=== PATIENT | male | born 1935 | race Caucasian/White ===

== ENCOUNTER 2016-08-01 21:51 | Inpatient (IN) | payer MEDICARE ==
--- NOTE | ~2016-08-01 | DS ---
Discharge Summary [facility] [address] [place]. [address] NAME: SASHA GALO : 33 STATUS : DIS IN PAT#: [id number] AGE: 81 ADM/REG DATE : 08/02/16 MR#: [id number] REPORT SERV DATE: 08/07/16 DICTATED BY: PAVAN YAÑEZ DATE: 08/05/16 REPORT STATUS : Draft TRANSCRIBED BY: MODL DATE: 08/05/16 ADMISSION DATE: 08/02/2016 DISCHARGE DATE: PALLIATIVE CARE DOCTOR: Andre Jerez M.D. FINAL DIAGNOSES: 1. Acute on chronic hypoxic respiratory failure. 2. Aspiration pneumonitis. 3. Pulmonary fibrosis. 4. Atrial fibrillation. 5. Hypertension. 6. Chronic diastolic congestive heart failure. 7. History of pulmonary embolism and deep venous thrombosis. 8. Benign prostatic hypertrophy. 9. Anxiety and panic attacks. 10.Chronic pain. HOSPITAL COURSE: Please refer to the H and P done by Dr. Aragon dated on 08/02/2016 and the interim discharge summary done by Dr. Yusuf dated on 08/05/2016. Since I took care of this patient, the patient has been doing well and is saturating at 93% at 3.5 L of oxygen. His baseline is that he goes up to 6 L when he starts moving around. He said he feels so much better and wants to go back to [facility] to continue his rehab. I was told by the Case Management that the patient will be accepted by [facility] today, so we will be discharging him there with the above diagnosis. MEDICATIONS: Same thing as on the discharge summary done by Dr. Yusuf. FOLLOWUP: The patient will follow up with the [facility] doctor, then follow up with Dr. Potter and Dr. Osorio after discharge from [facility]. This has been explained to the patient and he agreed and understood the plan. ADDENDUM The patient was already approved for [facility] yesterday; however, there was no bed available, so the patient stayed an additional night here, where he and his vital signs remained stable. The patient denied any pain and no increase in shortness of breath. However, he had several questions and I discussed that with him with regard to his diagnosis and treatment, prognosis, hypoxia, and at one point, he was saying that his arthritis in his hands can give him so much pain that he is willing to stop his Eliquis in order to take his NSAIDs. I discussed with him other alternative measures aside from the intake of NSAIDs wherein he can use some topical agents of various kinds, keeping it warm, and he understood this. The patient will now be discharged with the same diagnoses as dictated yesterday and the same medications. He will follow up with [facility] doctor and follow up with his PCP after discharge. TIME SPENT: 35 minutes. Discharge Summary [address] [place]. [address] NAME: SASHA GALO : 33 STATUS : DIS IN PAT#: [id number] AGE: 81 ADM/REG DATE : 08/02/16 MR#: [id number] REPORT SERV DATE: 08/07/16 DICTATED BY: PAVAN YAÑEZ DATE: 08/05/16 REPORT STATUS : Draft TRANSCRIBED BY: NASIM DATE: 08/05/16 GRACIA/NASIM Pavan Yañez M.D. / [id number] / [id number] CC: Timoteo Khan M.D. Robert Warren Goldmann, M.D.
--- NOTE | ~2016-08-01 | DS ---
Discharge Summary [facility] [address] [place]. [address] NAME: SASHA GALO : 33 STATUS : ADM IN [facility]#: [id number] AGE: 81 ADM/REG DATE : 08/02/16 MR#: [id number] REPORT SERV DATE: 08/05/16 DICTATED BY: DATE: REPORT STATUS : Draft TRANSCRIBED BY: MODL DATE: 08/04/16 ADMISSION DATE: 08/02/2016 DISCHARGE DATE: 08/04/2016 [facility] DIRECTOR EDUCATIONAL RADIO: None. DISCHARGE DIAGNOSES: 1. Acute exacerbation of pulmonary fibrosis due to left lower lobe aspiration pneumonitis. 2. Acute on chronic hypoxemic respiratory failure, at baseline 6 L oxygen-dependent, discharged on 6 L to 8 L of oxygen. 3. Chronic atrial fibrillation, rate controlled, on Eliquis. 4. Hypertension, controlled. 5. Benign prostatic hypertrophy. 6. Anxiety and panic attacks. 7. Chronic pain syndrome and narcotic dependence. 8. History of diastolic congestive heart failure, compensated this admission. 9. History of pulmonary embolism and deep venous thrombosis, on chronic Eliquis. 10.History of iron-deficiency. 11.Chronic constipation. IMAGING AND DIAGNOSTICS: Included a portable chest x-ray showing left lower lobe infiltrate and a two-view chest x-ray on 08/03/2016, showing resolution. PERTINENT LABORATORIES: BNP 66. Lactate 2.3. Sputum with 10 to 25 white blood cells and less than 25 epithelial cells. Procalcitonin negative. White blood cell count 9.0, hemoglobin 11.8, platelets normal, INR 1.3. Creatinine 1.1. Liver enzymes normal. Blood gas: PH 7.44, pCO2 40, pO2 41, oxygen saturation 77% on 6 L nasal cannula. Blood cultures x2 negative. Sputum culture pending at the time of dictation. BRIEF HISTORY: For full details, please see the previously dictated history of present illness by Dr. Jeronimo Aragon. This is an 81-year-old white male with known pulmonary fibrosis, dependent on 6 L oxygen nasal cannula, also with history of recent admission at [facility] for acute hypoxemic respiratory failure and aspiration pneumonia. He was discharged from that facility on 07/29/2016, to complete a 10-day course of Flagyl and Levaquin. He was discharged to [facility]. Over the preceding two days in [facility], he was becoming progressively short of breath, with oxygen saturations in the low 80s on 4 to 6 L oxygen by nasal cannula. In the emergency department, arterial blood gas showed pO2 of 41 on 6 L nasal cannula. He had rhonchi particularly in the left lower lobe with possible evidence of a left lower lobe infiltrate on Emergency Department chest x-ray. The patient was admitted to the Hospitalist Service for this. HOSPITAL COURSE: The patient was admitted to [address] [place] [address], placed on IV steroids, nebulized breathing treatments, and IV Rocephin and azithromycin. After 12 hours of admission, he was markedly improved with oxygen saturations in the upper 90s on 6 to 8 L nasal cannula. He Discharge Summary [address] [address] NAME: SASHA GALO : 33 STATUS : ADM IN [facility]#: [id number] AGE: 81 ADM/REG DATE : 08/02/16 MR#: [id number] REPORT SERV DATE: 08/05/16 DICTATED BY: DATE: REPORT STATUS : Draft TRANSCRIBED BY: MODL DATE: 08/04/16 still had some rhonchi in the left lower lobe. He had no leukocytosis and a negative procalcitonin. Sputum culture was obtained, demonstrating 10 to 25 white blood cells with culture results pending at the time of dictation. He continued to make improvement from a pulmonary perspective, and stated that he felt well on the morning of 08/04/2016, and was requesting to go back to [facility] to complete physical rehabilitation prior to going home. He is going to establish care with Dr. Jerez of palliative care at discharge from [facility]. The patient's other chronic medical problems as outlined above were stable and controlled on home medications here. Of note, initial portable chest x-ray in the emergency department was read as possible pulmonary edema, but the patient did not demonstrate clinically any signs of volume overload and had a negative BNP, thus was not felt to have any acute exacerbation of diastolic dysfunction this admission. DISCHARGE DISPOSITION: The patient is being discharged back to [facility] for additional rehab. He should continue to utilize oxygen by nasal cannula 6 to 8 L, titrate to keep his oxygen saturations greater than 88%. He will be treated with an additional five days of antibiotics and an oral steroid taper. Inhaled steroid has been added to his discharge medication regimen. DISCHARGE MEDICATIONS: Included: 1. Eliquis 2.5 mg p.o. twice a day. 2. Vitamin C 500 mg p.o. q.a.m. 3. Celexa 10 mg p.o. twice a day. 4. Cardizem 60 mg p.o. twice a day. 5. Colace 100 mg p.o. twice a day. 6. Cymbalta 60 mg p.o. q.a.m. 7. Iron sulfate 325 mg p.o. q.a.m. 8. Finasteride 5 mg p.o. q.a.m. 9. Folic acid 800 mcg p.o. q.a.m. 10.Gabapentin 500 mg p.o. at bedtime. 11.Melatonin 6 mg p.o. at bedtime. 12.Remeron 45 mg p.o. at bedtime. 13.Multivitamin one tablet p.o. daily. 14.Pantoprazole 40 mg p.o. q.a.c. breakfast. 15.MiraLAX 17 g p.o. at bedtime. 16.Potassium 20 mEq p.o. q.a.m. 17.Flomax 0.4 mg p.o. at bedtime. 18.Acetaminophen 650 mg p.o. every four hours as needed. 19.Dulcolax 10 mg per rectum daily as needed for constipation. 20.Milk of Mag 30 mL p.o. daily as needed for constipation. 21.Nitroglycerin 0.4 mg sublingual as needed for chest pain. 22.Zofran 4 mg p.o. every six hours as needed for nausea. 23.Senokot 17.2 mg p.o. at bedtime p.r.n. Discharge Summary [place] [place] [id number] [facility] [place]. [address] NAME: SASHA GALO : 33 STATUS : ADM IN PAT#: [id number] AGE: 81 ADM/REG DATE : 08/02/16 MR#: [id number] REPORT SERV DATE: 08/05/16 DICTATED BY: DATE: REPORT STATUS : Draft TRANSCRIBED BY: MODL DATE: 08/04/16 24.DuoNeb one neb inhaled four times a day scheduled and q.4 hours p.r.n. 25.Maalox 30 mL p.o. every 4 hours as needed. 26.Percocet 10/325 mg p.o. every six hours as needed. 27.Breo Ellipta 100/25 mcg one puff inhaled daily. 28.Augmentin 875/125 mg p.o. b.i.d. for five days. 29.Prednisone 60 mg p.o. daily for three days, then 40 mg p.o. daily for three days, then 20 mg p.o. daily for three days, then 10 mg p.o. daily for three days, then discontinue. Forty minutes was spent in completion of the discharge. MARLYNS/NASIM Tyler Yusuf M.D. / [id number] CC: Timoteo Sanz M.D. Robert Warren Goldmann, M.D. [facility]
--- NOTE | ~2016-08-01 | HP ---
History And Physical [facility] [place] [id number] [place]. [address] NAME: SASHA RIVERA : 33 STATUS : ADM Candy PAT#: [id number] AGE: 81 ADM/REG DATE : 08/02/16 MR#: [id number] REPORT SERV DATE: 08/02/16 DICTATED BY: JERONIMO CHANEL DATE: 08/02/16 REPORT STATUS : Draft TRANSCRIBED BY: MODL DATE: 08/02/16 DATE OF ADMISSION: 08/02/2016 CHIEF COMPLAINT: Shortness of breath, increased work of breathing, and oxygen saturations were dropping. HISTORY OF PRESENT ILLNESS: This is an 81-year-old male with history of pulmonary fibrosis, dependent on continuous oxygen four liters at rest and six with exertion, has history of COPD, atrial fibrillation for which he is on Eliquis, and chronic kidney disease who was sent here from [facility] for exacerbation of his COPD and worsening hypoxia. The history is obtained from the patient, reviewing data, which accompanied the patient from the facility and reviewing data available on [employer] here as well. According to available data, Mr. Rivera has idiopathic pulmonary fibrosis, home oxygen dependent as mentioned above, he has also COPD. He has been in [facility] where in the last two days or so he has become progressively short of breath. His vital signs have shown decline, his oxygen saturations have dropped down to the low 80s. The patient was transferred here to be evaluated. In the emergency room, an arterial blood gas done upon arrival showed us PaO2 of 41. This was on four liters. Hospitalist Service is asked to admit him for further evaluation and treatment. At the time of my evaluation, he denied any chest pain or palpitations. He had no orthopnea. He did have a cough, which was productive of greenish yellowish sputum very scanty about one or two episodes. Otherwise, he said he had no problems. He denied any hemoptysis, night sweats, or weight loss. He has had no fevers or chills in the last few days. He has had no falls or loss of consciousness. No history of nausea, vomiting, or diarrhea. No history of bleeding from anywhere. He has had no travel or exposures otherwise. PAST MEDICAL HISTORY: Significant for idiopathic pulmonary fibrosis, home oxygen dependent at four liters continuously, six with exertion. He also has history of atrial fibrillation, rate control with Cardizem and on Eliquis. He has gastroesophageal reflex disease, hypertension, and chronic kidney disease. SOCIAL HISTORY: He has never smoked. Does not drink, or use recreational drugs. 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 FAMILY HISTORY: Noncontributory. MEDICATIONS: At home were reviewed by me in the chart today and reordered by me. REVIEW OF SYSTEMS: As in history of present illness. All other systems were reviewed in detail and are quite unremarkable. PHYSICAL EXAMINATION: History And Physical [address] [address] NAME: SASHA RIVERA : 33 STATUS : ADM Candy PAT#: [id number] AGE: 81 ADM/REG DATE : 08/02/16 MR#: [id number] REPORT SERV DATE: 08/02/16 DICTATED BY: JERONIMO CHANEL DATE: 08/02/16 REPORT STATUS : Draft TRANSCRIBED BY: NASIM DATE: 08/02/16 GENERAL: This is a pleasant 81-year-old, in mild distress because of his shortness of breath. HEENT: His head is atraumatic, normocephalic. He is alert, awake, oriented to time, place, and person. Pupils are equal, reacting to light and accommodating. External ocular muscles are intact. Membranes are moist and pink. Sclerae are nonicteric. NECK: Supple with no jugular venous distention, lymphadenopathy, or thyromegaly. LUNGS: Auscultation of his lungs revealed markedly diminished air entry bilaterally with some rales as well. There was slight expiratory wheezes bilaterally as well. Trachea appeared to be in the midline. HEART: Auscultation of his heart revealed regular rate and rhythm. ABDOMEN: Soft, nontender. Bowel sounds are present. EXTREMITIES: Showed no cyanosis, clubbing, or edema. NEUROLOGIC: Grossly intact. No focal sensory or motor deficits. He was able to move all four extremities. Higher functions appeared intact. VITAL SIGNS: His vital signs today showed a temperature of 98.2, pulse 87, respirations 22 a minute, blood pressure was 122/82, oxygen saturations were 94% on 6 L of oxygen via nasal cannula. LABORATORY DATA: Reviewed on the [employer] system showed a pH of 7.44, pCO2 of 40, PaO2 of 41, and bicarb was 26.4. His CMP was essentially within normal limits. Blood glucose was 116, and his BNP was 66.6. Lactate was 1.0. CBC showed a white blood cell count of 9000, hemoglobin was 11.8, hematocrit 36.6, and platelet count was 185,000. Urinalysis was not done today. Films of the chest x-ray were reviewed by me on the PACS today and interpreted by me. Today's films were compared to prior films available on the PACS as well. There is diffuse pulmonary fibrosis without any lobar consolidations or pleural effusions seen. IMPRESSION: 1. Chronic obstructive pulmonary disease with acute exacerbation. 2. Acute on chronic hypoxic respiratory failure. 3. Idiopathic pulmonary fibrosis, on supplemental oxygen. 4. Atrial fibrillation, on Eliquis and Cardizem. 5. Hypertension. 6. Chronic kidney disease. 7. Gastroesophageal reflux disease. 8. The patient is DNR. PLAN: We will admit Mr. Rivera to Med/Surg tele bed for a 24-hour observation. We will maximize his bronchodilator treatments, continue oxygen therapy, and place him on steroids as well. His atrial fibrillation is rate controlled at this time with Cardizem. He is on Eliquis which we will continue. We will continue all other home medications and treatments at this time. His kidney disease appears to be stable, we will continue to monitor. He will be getting chemistry electrolytes and other laboratory work in the morning and we will replace accordingly. I have discussed above plans with the patient. His questions were answered. He is agreeable to the above recommendations. Again the patient is DNR. History And Physical [address] [address] NAME: SASHA RIVERA : 33 STATUS : ADM Candy PAT#: [id number] AGE: 81 ADM/REG DATE : 08/02/16 MR#: [id number] REPORT SERV DATE: 08/02/16 DICTATED BY: JERONIMO CHANEL DATE: 08/02/16 REPORT STATUS : Draft TRANSCRIBED BY: NASIM DATE: 08/02/16 Hospitalist Service will be following him during his stay here. /NASIM Jeronimo Chanel M.D. / [id number] CC: Timoteo Sanz M.D.
[~2016-08-01 21:51] MED LIST: ALBUTEROL INH; ASAB PO; ATIVAN2 MG PO; AUG875 PO; B COMPLETE PO; C25 PO; C5 PO; CARD120 PO; CARD60 PO; CARDCD120; CARDCD120 PO; CARDCD240 PO; CARDCD300 PO; CARDIZEM LA120 MG PO; CARDU4 PO; CARDURA8 MG PO; CEFT2 PO; CELEXA20 PO; CENTRUM PO; CENTRUM TAB1 TAB PO; COMBIVENT RESPIM4 GM INH; CYMBALTA60 PO; DOX25 PO; DUONEB; DUONEB INH; ELIQUIS 2.5 MG2.5 MG PO; ELIQUIS 5 MG TAB5 MG PO; FERROUS SULF325 M1 PO; FLOMAX4 PO; FLONASE NAS; FLORASTOR250 MG PO; FOLIC ACID800 MCG PO; FOLIC PO; HUMI PO; IMOD PO; IPRATROPIUM INH; IRON OTC PO; IRON325 MG PO; K-TABS10 MEQ PO; KDUR20 PO; KLOR-CON 1010 MEQ PO; KLOR-CON M1010 MEQ PO; KLOR-CON M2020 MEQ PO; L20 PO; L40 PO; MIRALAXPKT PO; MULTIVIT/MIN PO; MULTIVITAMI1 PO; MVI PO; NEUR100 PO; NEUR400 PO; NEUR800 PO; NEXIUM40 PO; NORV10 PO; NORV25 PO; Neurontin PO; OXYGEN; PERCOCET 10/3251 TAB PO; PERCOCET1 TA2 PO; PERCOCET1 TA4 PO; PLAVIX PO; PRILO PO; PRILOSEC40 MG PO; PRIN2.5 PO; PRISTIQ50 MG PO; PROFERRIN ES12 MG OR; PROSCAR5 PO; PYR200 PO; REMERON45 MG PO; SLOW FE160 MG PO; ST. JOHN'S300 MG OR; SUPER B-100 OR; T PO; TRICOR145 PO; TYLENOL PM PO; VALIUM10 MG PO; VITAMIN B PO; VITAMIN C OTC PO; VITAMIN C100 MG PO; VITC500 PO; VOLT25 PO; VOLT75 PO; [UNRECOGNIZED DRUG - OTHER] PO
[2016-08-01 22:14] LABS: BASOPHILS 0.7 %; BASOPHILS ABSOLUTE 0.06 10/3/uL (0.0-0.16); EOSINOPHILS 8.5 %; EOSINOPHILS ABSOLUTE 0.77 10/3/uL (0.0-0.53); HEMATOCRIT 36.6 % (40.0-51.0); HEMOGLOBIN 11.8 g/dL (13.6-17.8); IMMATURE GRANULOCYTES 0.2 %; IMMATURE GRANULOCYTES ABSOLUTE 0.02 10/3/uL (0.0-0.11); LYMPHOCYTES 14.9 %; LYMPHOCYTES ABSOLUTE 1.34 10/3/uL (0.67-4.30); MEAN CORPUS HGB CONC 32.2 g/dL (32.0-36.0); MEAN CORPUSCULAR HEMOGLOB 31.9 pg (26.0-34.0); MEAN CORPUSCULAR VOLUME 98.9 fL (80-100); MEAN PLATELET VOLUME 10.5 fL (9.2-13.0); MONOCYTES 7.2 %; MONOCYTES ABSOLUTE 0.65 10/3/uL (0.21-1.20); NEUTROPHILS 68.5 %; NEUTROPHILS ABSOLUTE 6.17 10/3/uL (2.02-8.40); PLATELET COUNT 185 10/3/uL (150-400); RBC DISTRIBUTION WIDTH 13.8 % (12.0-16.0)
[2016-08-01 22:15] LABS: MANUAL DIFF NO %
[2016-08-01 22:25] LABS: INTERNATIONAL NORMAL RATI 1.3 UNITS (-)
[2016-08-01 22:33] LABS: A/G RATIO 0.9 (0.7-1.9); ALBUMIN 3.5 G/DL (3.5-5.0); ALKALINE PHOSPHATASE 67 U/L (45-117); BUN (BLOOD UREA NITROGEN) 27 MG/DL (6-23); CHLORIDE, SERUM 105 MMOL/L (96-112); CO2 (CARBON DIOXIDE) 31 MMOL/L (24-34); CREATININE 1.18 MG/DL (0.70-1.30); GFR AFRICAN AMERICAN 66 ML/MIN (>=60); GFR NON AFRICAN AMERICAN 57 ML/MIN (>=60); GLOBULIN 3.9 G/DL (2.5-4.1); POTASSIUM, SERUM 4.5 MMOL/L (3.5-5.3); SGOT(AST) 21 U/L (5-40); SGPT(ALT) 19 U/L (5-65); SODIUM, SERUM 142 MMOL/L (135-148); TOTAL BILIRUBIN 0.4 MG/DL (0-1.2); TOTAL PROTEIN 7.4 G/DL (6.0-8.5)
[2016-08-01 22:34] LABS: GLUCOSE, SERUM 116 MG/DL (60-99)
[2016-08-01 23:56] LABS: BE (BASE EXCESS) 2.2 MEQ/L (0 +/- 2.5); CARBOXYHEMOGLOBIN 1.3 % (0-3); HCO3 (ACTUAL BICARBONATE) 26.4 MEQ/L (23-27); HEMOBLOGIN CONTENT 12.9 G/DL (14-18); INSTRUMENT SERIAL # 8087; METHEMOGLOBIN 0.3 % (0-3); O2 CONTENT 13.8 VOL% (18-24); OPERATOR ID 17589; PCO2 (CO2 TENSION) 40 MMHG (35-45); PO2 (O2 TENSION) 41 MMHG (79-93); SAMPLE Arterial; pH 7.44 (7.37-7.43)
[2016-08-01 23:57] LABS: DEVICE Nasal Cannula @ 6 lp
[2016-08-02] MEDS ORDERED: DUONEB INH ×2 (00:17→00:35)
[2016-08-02] MEDS ORDERED: ELIQUIS 2.5 MG2.5 MG PO (00:18)
[2016-08-02] MEDS ORDERED: CELEXA10 PO (00:18)
[2016-08-02] MEDS ORDERED: VITC500 PO (00:18)
[2016-08-02] MEDS ORDERED: CYMBALTA60 PO (00:19)
[2016-08-02] MEDS ORDERED: DSS PO (00:19)
[2016-08-02] MEDS ORDERED: CARD60 PO (00:19)
[2016-08-02] MEDS ORDERED: FERROUS SULF325 M1 PO (00:19)
[2016-08-02] MEDS ORDERED: FOLIC ACID800 MCG PO (00:20)
[2016-08-02] MEDS ORDERED: PROSCAR5 PO (00:20)
[2016-08-02] MEDS ORDERED: NEUR100 PO (00:20)
[2016-08-02] MEDS ORDERED: MELA3 PO (00:24)
[2016-08-02] MEDS ORDERED: LEVAQUIN750 MG PO (00:24)
[2016-08-02] MEDS ORDERED: FLAG500TAB PO (00:25)
[2016-08-02] MEDS ORDERED: REMERON45 MG PO (00:25)
[2016-08-02] MEDS ORDERED: MULTIVIT/MIN PO (00:25)
[2016-08-02] MEDS ORDERED: PROTONIX PO (00:26)
[2016-08-02] MEDS ORDERED: MIRALAX POWDER1 PKT PO (00:26)
[2016-08-02] MEDS ORDERED: KDUR20 PO (00:29)
[2016-08-02] MEDS ORDERED: T PO (00:30)
[2016-08-02] MEDS ORDERED: FLOMAX4 PO (00:30)
[2016-08-02] MEDS ORDERED: MAALOX PO (00:35)
[2016-08-02] MEDS ORDERED: BISR PR (00:36)
[2016-08-02] MEDS ORDERED: PERCOCET 10/3251 TAB PO (00:36)
[2016-08-02] MEDS ORDERED: MOMUD PO (00:37)
[2016-08-02] MEDS ORDERED: ZOFRAN4 PO (00:37)
[2016-08-02] MEDS ORDERED: NITROSTAT0.4 MG SL (00:37)
[2016-08-02] MEDS ORDERED: SENTAB PO (00:38)
[2016-08-02 10:55] LABS: PHOSPHORUS, SERUM 3.3 MG/DL (2.5-4.5)
[2016-08-02 15:31] LABS: PROCALCITONIN 0.23 ng/mL (<0.5)
[2016-08-03 06:46] LABS: BASOPHILS 0 %; EOSINOPHILS 0 %; HEMATOCRIT 34.1 % (40.0-51.0); HEMOGLOBIN 10.9 g/dL (13.6-17.8); IMMATURE GRANULOCYTES 0.1 %; IMMATURE GRANULOCYTES ABSOLUTE 0.01 10/3/uL (0.0-0.11); LYMPHOCYTES 6.8 %; LYMPHOCYTES ABSOLUTE 0.54 10/3/uL (0.67-4.30); MEAN CORPUSCULAR VOLUME 96.9 fL (80-100); MONOCYTES ABSOLUTE 0.08 10/3/uL (0.21-1.20); NEUTROPHILS 92.1 %; NEUTROPHILS ABSOLUTE 7.33 10/3/uL (2.02-8.40); PLATELET COUNT 175 10/3/uL (150-400); RED CELL COUNT 3.52 10/6/uL (4.7-6.1)
[2016-08-03 06:47] LABS: MANUAL DIFF NO %
[2016-08-03 06:52] LABS: BUN (BLOOD UREA NITROGEN) 30 MG/DL (6-23); CALCIUM, SERUM 8.5 MG/DL (8.5-10.4); CHLORIDE, SERUM 106 MMOL/L (96-112); CO2 (CARBON DIOXIDE) 28 MMOL/L (24-34); CREATININE 1.06 MG/DL (0.70-1.30); GFR AFRICAN AMERICAN 75 ML/MIN (>=60); GFR NON AFRICAN AMERICAN 65 ML/MIN (>=60); POTASSIUM, SERUM 4.5 MMOL/L (3.5-5.3); SODIUM, SERUM 143 MMOL/L (135-148)
[2016-08-03 06:53] LABS: GLUCOSE, SERUM 167 MG/DL (60-99)
[2016-08-04 05:32] LABS: BASOPHILS 0 %; EOSINOPHILS 0 %; HEMATOCRIT 34.6 % (40.0-51.0); HEMOGLOBIN 11.3 g/dL (13.6-17.8); IMMATURE GRANULOCYTES 0.4 %; IMMATURE GRANULOCYTES ABSOLUTE 0.04 10/3/uL (0.0-0.11); LYMPHOCYTES 6.4 %; LYMPHOCYTES ABSOLUTE 0.61 10/3/uL (0.67-4.30); MEAN CORPUS HGB CONC 32.7 g/dL (32.0-36.0); MEAN CORPUSCULAR HEMOGLOB 31.8 pg (26.0-34.0); MEAN CORPUSCULAR VOLUME 97.5 fL (80-100); MEAN PLATELET VOLUME 10.5 fL (9.2-13.0); MONOCYTES 4.1 %; MONOCYTES ABSOLUTE 0.39 10/3/uL (0.21-1.20); NEUTROPHILS 89.1 %; NEUTROPHILS ABSOLUTE 8.43 10/3/uL (2.02-8.40); PLATELET COUNT 170 10/3/uL (150-400); RBC DISTRIBUTION WIDTH 13.7 % (12.0-16.0); RED CELL COUNT 3.55 10/6/uL (4.7-6.1); WHITE BLOOD CELLS 9.5 10/3/uL (4.5-10.5)
[2016-08-04 05:35] LABS: MANUAL DIFF NO %
[2016-08-04 05:47] LABS: CHLORIDE, SERUM 107 MMOL/L (96-112); CO2 (CARBON DIOXIDE) 28 MMOL/L (24-34); CREATININE 1.09 MG/DL (0.70-1.30); GFR AFRICAN AMERICAN 72 ML/MIN (>=60); GFR NON AFRICAN AMERICAN 62 ML/MIN (>=60); POTASSIUM, SERUM 4.1 MMOL/L (3.5-5.3); SODIUM, SERUM 143 MMOL/L (135-148)
[2016-08-04 05:48] LABS: BUN (BLOOD UREA NITROGEN) 35 MG/DL (6-23); GLUCOSE, SERUM 127 MG/DL (60-99)
[2016-10-01] MEDS ORDERED: DUONEB INH (18:47)
[2016-10-01] MEDS ORDERED: PRILOSEC40 MG PO (18:47)
[2016-10-01] MEDS ORDERED: CYMBALTA60 PO (18:48)
[2016-10-01] MEDS ORDERED: KLOR-CON M2020 MEQ PO (18:48)
[2016-10-01] MEDS ORDERED: ELIQUIS 2.5 MG2.5 MG PO (18:48)
[2016-10-01] MEDS ORDERED: CARD120 PO (18:49)
[2016-10-01] MEDS ORDERED: FLOMAX4 PO (18:49)
[2016-10-01] MEDS ORDERED: L20 PO (18:49)
[2016-10-01] MEDS ORDERED: PROSCAR5 PO (18:49)
[2016-10-01] MEDS ORDERED: FOLIC ACID800 MCG PO (18:49)
[2016-10-01] MEDS ORDERED: PEP20 PO (18:50)
[2016-10-01] MEDS ORDERED: REQUIP5 PO (18:50)
[2016-10-01] MEDS ORDERED: REMERON45 MG PO (18:50)
[2016-10-01] MEDS ORDERED: METPAKSF PO (18:51)
[2016-10-01] MEDS ORDERED: PERCOCET 10/3251 TAB PO (18:51)
[2016-10-01] MEDS ORDERED: NEUR600 PO (18:51)
[2016-10-01] MEDS ORDERED: MELATONIN PO (18:52)
[2016-10-01] MEDS ORDERED: MIRALAX POWDER1 PKT PO (18:52)
[2016-10-01] MEDS ORDERED: MULTIVIT/MIN PO (18:53)
[2016-10-01] MEDS ORDERED: VITAMIN C OTC PO (18:53)
[2016-10-01] MEDS ORDERED: SUPER B COMP PO (18:53)
[2016-10-01] MEDS ORDERED: IRON OTC PO (18:53)
[2016-10-02] MEDS ORDERED: MELATONIN1 M1 PO (14:57)
[2016-10-16] MEDS ORDERED: CARTIA XT120 MG/24 PO (09:42)
[2016-10-16] MEDS ORDERED: MEDROL8 MG PO (09:46)
[2016-10-16] MEDS ORDERED: L40 PO (09:46)
[2016-10-16] MEDS ORDERED: OMNICEF300 PO (09:47)
[2016-11-18] MEDS ORDERED: PRILOSEC40 MG PO (15:42)
[2016-11-18] MEDS ORDERED: ELIQUIS 2.5 MG2.5 MG PO (15:42)
[2016-11-18] MEDS ORDERED: DUONEB INH (15:42)
[2016-11-18] MEDS ORDERED: KLOR-CON M2020 MEQ PO (15:43)
[2016-11-18] MEDS ORDERED: CARTIA XT120 MG/24 PO (15:43)
[2016-11-18] MEDS ORDERED: PROSCAR5 PO (15:43)
[2016-11-18] MEDS ORDERED: CYMBALTA60 PO (15:43)
[2016-11-18] MEDS ORDERED: PERCOCET 10/3251 TAB PO (15:44)
[2016-11-18] MEDS ORDERED: FLOMAX4 PO (15:44)
[2016-11-18] MEDS ORDERED: FOLIC ACID400 MC1 PO (15:44)
[2016-11-18] MEDS ORDERED: L40 PO (15:44)
[2016-11-18] MEDS ORDERED: NEUR600 PO (15:44)
[2016-11-18] MEDS ORDERED: REQUIP5 PO (15:45)
[2016-11-18] MEDS ORDERED: REMERON45 MG PO (15:45)
[2016-11-18] MEDS ORDERED: SUPER B COMP PO (15:45)
[2016-11-18] MEDS ORDERED: MULTIVIT/MIN PO (15:45)
[2016-11-18] MEDS ORDERED: PEP20 PO (15:45)
[2016-11-18] MEDS ORDERED: MELATONIN PO (15:46)
[2016-11-18] MEDS ORDERED: IRON OTC PO (15:46)
[2016-11-18] MEDS ORDERED: VITC500 PO (15:46)
[2016-11-18] MEDS ORDERED: METPAKSF PO (15:46)
[2016-11-18] MEDS ORDERED: MIRALAX POWDER1 PKT PO (15:47)
[2016-11-24] MEDS ORDERED: ASAB (13:37)
[2016-11-24] MEDS ORDERED: PRIN10 (13:39)
[2016-11-24] MEDS ORDERED: MELA3 (13:40)
[2016-11-24] MEDS ORDERED: T PO (13:45)
[2016-11-24] MEDS ORDERED: ZOFRAN4 (13:47)
[2016-11-24] MEDS ORDERED: MELATONIN5 M1 (13:50)
[2017-01-27] MEDS ORDERED: PRILOSEC40 MG PO (18:27)
[2017-01-27] MEDS ORDERED: ELIQUIS 2.5 MG2.5 MG PO (18:28)
[2017-01-27] MEDS ORDERED: CYMBALTA60 PO (18:28)
[2017-01-27] MEDS ORDERED: L40 PO (18:29)
[2017-01-27] MEDS ORDERED: CARTIA XT120 MG/24 PO (18:29)
[2017-01-27] MEDS ORDERED: FOLIC ACID400 MC1 PO (18:29)
[2017-01-27] MEDS ORDERED: PROSCAR5 PO (18:29)
[2017-01-27] MEDS ORDERED: KLOR-CON M2020 MEQ PO (18:29)
[2017-01-27] MEDS ORDERED: NEUR400 PO (18:30)
[2017-01-27] MEDS ORDERED: PERCOCET 10/3251 TAB PO (18:30)
[2017-01-27] MEDS ORDERED: FLOMAX4 PO (18:30)
[2017-01-27] MEDS ORDERED: ZOCOR20 PO (18:30)
[2017-01-27] MEDS ORDERED: PEP20 PO (18:31)
[2017-01-27] MEDS ORDERED: REQUIP5 PO (18:31)
[2017-01-27] MEDS ORDERED: MULTIVIT/MIN PO (18:31)
[2017-01-27] MEDS ORDERED: REMERON45 MG PO (18:31)
[2017-01-27] MEDS ORDERED: VITC500 PO (18:32)
[2017-01-27] MEDS ORDERED: SUPER B COMP PO (18:32)
[2017-01-27] MEDS ORDERED: IRON OTC PO (18:32)
[2017-01-27] MEDS ORDERED: MELATONIN10 M2 PO (18:32)
[2017-01-27] MEDS ORDERED: DUONEB INH (18:33)
[2017-01-27] MEDS ORDERED: METPAKSF PO (18:33)
[2017-02-02] MEDS ORDERED: STERAPRED DS10 MG (16:16)
[2017-02-02] MEDS ORDERED: X25 PO (16:17)
== END 2016-08-06 16:17 | DRG 177 ==
LOC: ER 21:51 → 5SO 08-02 01:01
PROVIDERS: Emergency Medicine; Hospitalist; Internal Medicine Pulmonary Disease
DX: J69.0 Pneumonitis due to inhalation of food and vomit (principal); J96.21 Acute and chronic respiratory failure with hypoxia; I50.32 Chronic diastolic (congestive) heart failure; I13.0 Hypertensive heart and chronic kidney disease with heart failure and stage 1 through stage 4 chronic kidney disease, or unspecified chronic kidney disease; F11.20 Opioid dependence, uncomplicated; J44.1 Chronic obstructive pulmonary disease with (acute) exacerbation; Z99.81 Dependence on supplemental oxygen; I48.2 Chronic atrial fibrillation; N40.0 Benign prostatic hyperplasia without lower urinary tract symptoms; F41.0 Panic disorder [episodic paroxysmal anxiety]; Z86.711 Personal history of pulmonary embolism; Z86.718 Personal history of other venous thrombosis and embolism; K59.09 Other constipation; Z79.899 Other long term (current) drug therapy; N18.9 Chronic kidney disease, unspecified; J84.112 Idiopathic pulmonary fibrosis; Z66 Do not resuscitate; N18.3 Chronic kidney disease, stage 3 (moderate); Z51.5 Encounter for palliative care
CPT/HCPCS: 71010; 71020; 80048; 80053; 82805; 82962; 83605; 83735; 83880; 84100; 84145; 85025; 85610; 87040; 87070; 87205; 93005; 94640; 96374; 99285; A9270-GY; J0456; J2930